=== PATIENT | male | born 1970 | race Caucasian/White ===

== ENCOUNTER 2017-09-13 16:18 | Emergency (ER) | payer BC, OTHER ==
[2017-09-13 16:36] VITALS: BP 158/88; PULSE 102; RESP 18; TEMP 99.5; O2SAT 96
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
== END 2017-09-13 17:08 | disposition home or self-care (01) ==
LOC: CED 16:18
DX: J20.9 Acute bronchitis, unspecified (principal)